=== PATIENT | female | born 1975 | race Caucasian/White ===

== ENCOUNTER 2017-05-13 22:04 | Emergency (ER) | payer OTHER ==
[~2017-05-13] VITALS: Ht 154.9 cm; Wt 116.8 kg
[2017-05-13] MEDS ORDERED: MOTRIN600 MG PO (23:08)
[2017-05-13 23:19] VITALS: BP 139/79
== END 2017-05-13 23:32 | disposition home or self-care (01) ==
LOC: EME 22:04
DX: S60.212A Contusion of left wrist, initial encounter (principal); W19.XXXA Unspecified fall, initial encounter
CPT/HCPCS: 73090; 99281; 99283